=== PATIENT | female | born 1960 | race Caucasian/White ===

== ENCOUNTER → 2023-07-07 12:44 | Outpatient (REF) | payer OTHER, SELFPAY | LOC: WDC 12:44 | PROVIDERS: ATTENDING PHYSICIAN Nurse Practitioner Adult Health; FAMILY PHYSICIAN Family Medicine | DX: R92.2 Inconclusive mammogram (principal) | CPT/HCPCS: 76641 ==

== ENCOUNTER → 2023-08-27 11:46 | Outpatient (REF) | payer OTHER, SELFPAY | LOC: WDC 11:46 | PROVIDERS: ATTENDING PHYSICIAN Nurse Practitioner Adult Health; FAMILY PHYSICIAN Family Medicine | DX: Z12.31 Encounter for screening mammogram for malignant neoplasm of breast (principal) | CPT/HCPCS: 77063; 77067 ==

== ENCOUNTER 2023-12-02 16:30 | Outpatient (RCR) | payer OTHER, SELFPAY | END 2023-12-02 23:59 | disposition home or self-care (01) | LOC: ROT 16:30 | PROVIDERS: ATTENDING PHYSICIAN Orthopaedic Surgery Hand Surgery; FAMILY PHYSICIAN Family Medicine | DX: Z47.89 Encounter for other orthopedic aftercare (principal); S52.571D Other intraarticular fracture of lower end of right radius, subsequent encounter for closed fracture with routine healing; Z73.6 Limitation of activities due to disability; M25.531 Pain in right wrist | CPT/HCPCS: 97010; 97022; 97110; 97140; 97166; 97535 ==

== ENCOUNTER 2024-01-03 09:08 | Outpatient (RCR) | payer OTHER, SELFPAY | END 2024-01-03 23:59 | disposition home or self-care (01) | LOC: ROT 09:08 | PROVIDERS: ATTENDING PHYSICIAN Orthopaedic Surgery Hand Surgery; FAMILY PHYSICIAN Family Medicine | DX: Z47.89 Encounter for other orthopedic aftercare (principal); S52.571D Other intraarticular fracture of lower end of right radius, subsequent encounter for closed fracture with routine healing; Z73.6 Limitation of activities due to disability | CPT/HCPCS: 97010; 97022; 97110; 97140 ==

== ENCOUNTER 2024-01-24 08:56 | Outpatient (RCR) | payer OTHER, SELFPAY | END 2024-01-24 23:59 | disposition home or self-care (01) | LOC: ROT 08:56 | PROVIDERS: ATTENDING PHYSICIAN Orthopaedic Surgery Hand Surgery; FAMILY PHYSICIAN Family Medicine | DX: Z47.89 Encounter for other orthopedic aftercare (principal); S52.571D Other intraarticular fracture of lower end of right radius, subsequent encounter for closed fracture with routine healing; Z73.6 Limitation of activities due to disability | CPT/HCPCS: 97022; 97110; 97140 ==

== ENCOUNTER → 2024-05-23 12:20 | Outpatient (REF) | payer OTHER, SELFPAY | LOC: RAD 12:20 | PROVIDERS: ATTENDING PHYSICIAN Family Medicine | DX: M75.82 Other shoulder lesions, left shoulder (principal) | CPT/HCPCS: 73030 ==

== ENCOUNTER 2024-07-05 16:57 | Outpatient (RCR) | payer OTHER, SELFPAY | END 2024-07-05 23:59 | disposition home or self-care (01) | LOC: RPT 16:57 | PROVIDERS: ATTENDING PHYSICIAN Orthopaedic Surgery Orthopaedic Trauma; FAMILY PHYSICIAN Family Medicine | DX: M65.222 Calcific tendinitis, left upper arm (principal); Z73.6 Limitation of activities due to disability; M62.81 Muscle weakness (generalized) | CPT/HCPCS: 97110; 97161; 97530 ==

== ENCOUNTER 2024-07-27 08:58 | Outpatient (RCR) | payer OTHER, SELFPAY | END 2024-07-27 23:59 | disposition home or self-care (01) | LOC: RPT 08:58 | PROVIDERS: ATTENDING PHYSICIAN Orthopaedic Surgery Orthopaedic Trauma; FAMILY PHYSICIAN Family Medicine | DX: M65.222 Calcific tendinitis, left upper arm (principal); Z73.6 Limitation of activities due to disability; M62.81 Muscle weakness (generalized) | CPT/HCPCS: 97110 ==

== ENCOUNTER → 2024-08-28 18:22 | Outpatient (REF) | payer OTHER, SELFPAY | LOC: WDC 18:22 | PROVIDERS: ATTENDING PHYSICIAN Nurse Practitioner Adult Health; FAMILY PHYSICIAN Family Medicine | DX: Z12.31 Encounter for screening mammogram for malignant neoplasm of breast (principal) | CPT/HCPCS: 77063; 77067 ==

== ENCOUNTER → 2024-09-04 07:54 | Outpatient (REF) | payer OTHER, SELFPAY | LOC: WDC 07:54 | PROVIDERS: ATTENDING PHYSICIAN Nurse Practitioner Adult Health; FAMILY PHYSICIAN Family Medicine | DX: R92.2 Inconclusive mammogram (principal) | CPT/HCPCS: 76641 ==

== ENCOUNTER → 2024-10-22 07:42 | Outpatient (REF) | payer OTHER, SELFPAY | LOC: MRI 3T 07:42 | PROVIDERS: ATTENDING PHYSICIAN Psychiatry & Neurology Neurology; FAMILY PHYSICIAN Family Medicine | DX: G35 Multiple sclerosis (principal) | CPT/HCPCS: 70551 ==